=== PATIENT | male | born 1970 | race Caucasian/White ===

== ENCOUNTER 2019-08-21 20:18 | Emergency (ER) | payer BC, OTHER ==
[2019-08-21 20:41] LABS: Hemoglobin 14.7 g/dL (14.0-18.0); Mean Corpuscular HGB CONC 31.4 g/dL (32.0-36.0); Mean Corpuscular Hemoglobin 30.2 pg (27.0-31.0); Mean Platelet Volume 6.9 fL (7.4-10.4); Platelet Count 287 thou/uL (130-400); RBC Distribution Width 11.8 % (11.5-14.5); Red Blood Cell (RBC) Count 4.87 mill/uL (4.70-6.10)
--- NOTE | 2019-08-21 20:48 | RAD ---
XR Chest 1 View Portable History: Chest pain Comparison: None. Findings: Lungs are hypoinflated. Heart size upper limits of normal. No pneumothorax. No effusion. No acute osseous abnormality. Impression: Lung hypoinflation otherwise no acute intrathoracic abnormality.
[2019-08-21 20:51] LABS: Bilirubin Negative (Negative); Blood, Urine Trace (Negative); Clarity Clear (Clear); Glucose, Urine (Dipstick) Negative (Negative); Leukocyte Negative (Negative); Nitrite Negative (Negative); Protein, Urine (Dipstick) Negative (Neg-Trace); Urobilinogen 0.2 mg/dL (Less than 2)
[2019-08-21 20:56] LABS: ALT (SGPT) 49 U/L (8-55); AST (SGOT) 33 U/L (5-34); Albumin 4.4 g/dL (3.5-5.0); Alkaline Phosphatase 48 U/L (40-110); Anion Gap 14 mmol/L (10-20); BUN (Urea Nitrogen) 12 mg/dL (8.9-20.6); Bilirubin, Total 0.3 mg/dL (0.2-1.2); CK (CPK) 352 U/L (30-200); Calc. Creatinine Clearance 0 mL/min (70-130); Calcium 9.5 mg/dL (7.8-10.44); Carbon Dioxide 26 mmol/L (22-29); Chloride 103 mmol/L (98-107); Estimated GFR-MDRD 78; Globulin 2.9 g/dL (2.4-3.5); Glucose 110 mg/dL (70-105); Potassium 3.7 mmol/L (3.5-5.1); Protein, Total 7.3 g/dL (6.0-8.3); Sodium 139 mmol/L (136-145)
[2019-08-21 20:59] LABS: Band 6 % (5-11); Eosinophils 2 % (0-10); Hypochromia SLIGHT = 6-15 cells (100X) (0-5/hpf); Lymphocytes 34 % (21-51); MDiff Complete? YES; Monocytes 11 % (0-10); Neutrophil 47 % (42-75); Platelet Morphology Comment Appears Adequate; Stomatocytes SLIGHT = 2-5 cells (100X) (0-1/hpf)
[2019-08-21 21:01] LABS: Bacteria/HPF None Seen HPF (None Seen); RBC/HPF None Seen HPF (0-3); Squamous Epithelial None Seen HPF (0-3); WBC/HPF None Seen HPF (0-3)
[2019-08-21 21:02] LABS: Amphetamine Not Detected (NotDetected); Barbiturates Screen Not Detected (NotDetected); Benzodiazepine Screen Not Detected (NotDetected); Cocaine Metabolite Screen Not Detected (NotDetected); Medtox Control Line Valid? VALID (VALID); Methadone Not Detected (NotDetected); Methamphetamine Not Detected (NotDetected); Opiate Screen Not Detected (NotDetected); Oxycodone Screen Not Detected (NotDetected); Phencyclidine (PCP) Not Detected (NotDetected); THC/Cannabinoid Screen Not Detected (NotDetected); Tricyclic Screen Not Detected (NotDetected)
[2019-08-21] MEDS ORDERED: Sodium Chloride 0.9% 1,000 ML ONE (21:09)
[2019-08-21] MEDS ORDERED: Lisinopril 10 MG TAB ONE (21:09)
[2019-08-21 21:14] LABS: CKMB 15.3 ng/mL (0-6.6)
[2019-08-21] MEDS ORDERED: Metoprolol Tartrate 50 MG TAB ONE (21:17)
[2019-08-21 21:26] LABS: Critical Call CKMB 15.4
[2019-08-21 21:27] LABS: Critical Call Chem Troponin I 1.679
[2019-08-21] MEDS ORDERED: Heparin 5,000 UNITS/ML VIAL ONE (21:34)
[2019-08-21] MEDS ORDERED: Heparin 10,000 UNITS/ 10 ML VIAL ONE (21:34)
[2019-08-21 21:36] LABS: PTT 25.5 SEC (22.9-36.1); Prothrombin Time 13.1 SEC (12.0-14.7)
[2019-08-21] MEDS ORDERED: Heparin 25,000 units/D5W 500 ML ONE (21:36)
[2019-08-22 11:53] LABS: Hemoglobin A1c 5.5 % (4.0-6.0)
== END 2019-08-21 22:24 | disposition short-term general hospital (02) ==
LOC: MADERS 20:18
DX: I21.4 Non-ST elevation (NSTEMI) myocardial infarction (principal); I10 Essential (primary) hypertension; E78.5 Hyperlipidemia, unspecified; E78.00 Pure hypercholesterolemia, unspecified; Z87.891 Personal history of nicotine dependence; Z79.899 Other long term (current) drug therapy
CPT/HCPCS: 71045; 80053; 80306; 81003; 81015; 82550; 82553; 83036; 83880; 84484; 85025; 85610; 85730; 93005; 94760; 96361; 96365; 96376; J1644; J7050